=== PATIENT | female | born 1965 | race American Indian/Alaskan Native ===

== ENCOUNTER 2017-01-11 20:09 | Emergency (ER) | payer BC ==
[2017-01-11 21:11] VITALS: BP 147/94
--- NOTE | 2017-01-12 02:31 | Emergency Department Report ---
Upper Extremity - HPI Chief Complaint: Extremity Problem,Nontraumatic Stated Complaint: L THUMB PAIN Time Seen by Provider: 01/12/17 02:26 Upper Extremity: Right Thumb Occurred When: 2 Days Severity: moderate Symptoms: Yes Pain with Movement, Yes Deformity, Yes Swelling, No Limited Range of Movement, No Numbness, No Weakness, No Bruising/Ecchymosis, No Laceration or Abrasion Other History: Paronychia ED Review of Systems ROS: Stated complaint: L THUMB PAIN Other details as noted in HPI Constitutional: denies: chills, fever Musculoskeletal: denies: arthralgia Skin: denies: rash, change in hair/nails ED Past Medical Hx - Past Medical History Previous Medical History?: No - Surgical History Past Surgical History?: Yes Additional Surgical History: TUBAL LIGATION - Social History Smoking Status: Current Every Day Smoker Substance Use Type: None - Medications Home Medications: Home Medications Medication Instructions Recorded Confirmed Last Taken Type Cephalexin [Keflex] 500 mg PO Q8HR #30 cap 01/12/17 Unknown Rx Upper Extremity Exam - Exam General: Vital signs noted. No distress. Alert and acting appropriately. Hand: Yes Digit Tenderness, No Hand Tenderness, No Hand Deformity, No Normal ROM in Digit(s) CMS Exam: Yes Normal Distal Pulses, Yes Normal Capillary Refill, No Broken Skin , No Normal Distal Sensation ED Course Vital Signs 01/11/17 21:07 Temperature 98.5 F Pulse Rate 84 Respiratory 18 Rate Blood Pressure 147/94 O2 Sat by Pulse 97 Oximetry - I & D Finger Type of Procedure: Simple Site: left thumb Blade Size: 11 Progress: Small paronychia decompressed ED Medical Decision Making - Medical Decision Making Small paronychia decompressive 11 blade. Finger is significant swollen will place on oral Keflex. Critical care attestation.: If time is entered above; I have spent that time in minutes in the direct care of this critically ill patient, excluding procedure time. ED Disposition Clinical Impression: Paronychia Disposition: DC-01 TO HOME OR SELFCARE Is pt being admited?: No Condition: Stable Instructions: Paronychia (ED) Prescriptions: Cephalexin [Keflex] 500 mg PO Q8HR #30 cap Referrals: PRIMARY CARE, [Primary Care Provider] - 3-5 Days
== END 2017-01-12 02:40 | disposition home or self-care (01) ==
LOC: ED 20:09
DX: L03.012 Cellulitis of left finger (principal); F17.200 Nicotine dependence, unspecified, uncomplicated
CPT/HCPCS: 99282

== ENCOUNTER 2017-05-22 04:39 | Emergency (ER) | payer BC, OTHER ==
[2017-05-22 04:52] VITALS: BP 122/87
--- NOTE | 2017-05-22 05:35 | Emergency Department Report ---
HPI - General Chief Complaint: Allergic Reaction Time Seen by Provider: 05/22/17 05:05 - HPI HPI: 52 yo female with c/o rash to face and neck that began 4 days ago after trying a new shampoo. She c/o scalp itching and dandruff ,no tongue swelling or airway symptoms. She washed the shampoo out, threw away contaminated clothing but the rash continues. ED Past Medical Hx - Past Medical History Previous Medical History?: Yes Hx Asthma: Yes - Surgical History Past Surgical History?: Yes Additional Surgical History: TUBAL LIGATION - Social History Smoking Status: Current Every Day Smoker Substance Use Type: None - Medications Home Medications: Home Medications Medication Instructions Recorded Confirmed Last Taken Type Cephalexin [Keflex] 500 mg PO Q8HR #30 cap 01/12/17 Unknown Rx ED Review of Systems ROS: Stated complaint: DERMATITIS Other details as noted in HPI Constitutional: denies: chills, fever Eyes: denies: eye pain, eye discharge, vision change ENT: denies: ear pain, throat pain Respiratory: denies: cough, shortness of breath, wheezing Cardiovascular: denies: chest pain, palpitations Endocrine: no symptoms reported Gastrointestinal: denies: abdominal pain, nausea, diarrhea Genitourinary: denies: urgency, dysuria, discharge Musculoskeletal: denies: back pain, joint swelling, arthralgia Skin: rash (face,neck ), pruritus, other. denies: lesions Neurological: denies: headache, weakness, paresthesias Psychiatric: denies: anxiety, depression Hematological/Lymphatic: denies: easy bleeding, easy bruising Physical Exam - Physical Exam Vital Signs: Vital Signs 05/22/17 04:46 Temperature 97.7 F Pulse Rate 100 H Respiratory 18 Rate Blood Pressure 122/87 O2 Sat by Pulse 100 Oximetry ED Course Vital Signs 05/22/17 04:46 Temperature 97.7 F Pulse Rate 100 H Respiratory 18 Rate Blood Pressure 122/87 O2 Sat by Pulse 100 Oximetry Critical care attestation.: If time is entered above; I have spent that time in minutes in the direct care of this critically ill patient, excluding procedure time. ED Disposition Condition: Stable Referrals: PRIMARY CARE, [Primary Care Provider] - 3-5 Days
[2017-05-22] MEDS ORDERED: PEPCID PO ONE (05:39)
[2017-05-22] MEDS ORDERED: BENADRYL PO ONE (05:39)
[2017-05-22] MEDS ORDERED: DELTASONE PO ONE (05:39)
--- NOTE | 2017-05-22 05:42 | Emergency Department Report ---
ED Allergic Reaction HPI - General Chief complaint: Allergic Reaction Stated complaint: DERMATITIS Time Seen by Provider: 05/22/17 05:05 Source: family Mode of arrival: Ambulatory Limitations: No Limitations - History of Present Illness Initial Comments: 52 yo femalw with c/o allergic reaction afor 4 days after trying a new shampoo. She initially had hives on her neck and face and dry patches form in her scalp , now she has no dry patches but continues to have the hives on face and neck. She is not sob, denies any airway symptoms, no hoarseness, no tongue swelling or swallowing difficulties. She threw away any contaminated clothing . - Related Data Previous Rx's Medication Instructions Recorded Last Taken Type Cephalexin [Keflex] 500 mg PO Q8HR #30 cap 01/12/17 Unknown Rx Ranitidine HCl [Acid Control] 150 mg PO BID #14 tablet 05/22/17 Unknown Rx diphenhydrAMINE [Benadryl CAP] 50 mg PO Q6HR #20 capsule 05/22/17 Unknown Rx predniSONE [Deltasone] 60 mg PO QDAY #7 tablet 05/22/17 Unknown Rx Allergies Allergy/AdvReac Type Severity Reaction Status Date / Time morphine Allergy Hives Verified 05/22/17 04:53 Sulfa (Sulfonamide Allergy Rash Verified 01/11/17 21:07 Antibiotics) ED Review of Systems ROS: Stated complaint: DERMATITIS Other details as noted in HPI Constitutional: denies: chills, fever Eyes: denies: eye pain, eye discharge, vision change ENT: denies: ear pain, throat pain Respiratory: denies: cough, shortness of breath, wheezing Cardiovascular: denies: chest pain, palpitations Endocrine: no symptoms reported Gastrointestinal: denies: abdominal pain, nausea, diarrhea Genitourinary: denies: urgency, dysuria, discharge Musculoskeletal: denies: back pain, joint swelling, arthralgia Skin: rash (face,neck ), pruritus, other. denies: lesions Neurological: denies: headache, weakness, paresthesias Psychiatric: denies: anxiety, depression Hematological/Lymphatic: denies: easy bleeding, easy bruising ED Past Medical Hx - Past Medical History Previous Medical History?: Yes Hx Asthma: Yes - Surgical History Past Surgical History?: Yes Additional Surgical History: TUBAL LIGATION - Social History Smoking Status: Current Every Day Smoker Substance Use Type: None - Medications Home Medications: Home Medications Medication Instructions Recorded Confirmed Last Taken Type Cephalexin [Keflex] 500 mg PO Q8HR #30 cap 01/12/17 Unknown Rx Ranitidine HCl [Acid Control] 150 mg PO BID #14 tablet 05/22/17 Unknown Rx diphenhydrAMINE [Benadryl CAP] 50 mg PO Q6HR #20 capsule 05/22/17 Unknown Rx predniSONE [Deltasone] 60 mg PO QDAY #7 tablet 05/22/17 Unknown Rx ED Physical Exam - General Limitations: No Limitations General appearance: alert, in no apparent distress - Head Head exam: Present: atraumatic, normocephalic - Eye Eye exam: Present: normal appearance, EOMI. Absent: scleral icterus, conjunctival injection - ENT ENT exam: Present: mucous membranes moist - Neck Neck exam: Present: normal inspection - Respiratory Respiratory exam: Present: normal lung sounds bilaterally. Absent: respiratory distress, wheezes, rales, rhonchi - Cardiovascular Cardiovascular Exam: Present: regular rate, normal rhythm. Absent: systolic murmur, diastolic murmur, rubs, gallop - GI/Abdominal GI/Abdominal exam: Present: soft, normal bowel sounds - Rectal Rectal exam: Present: deferred - Extremities Exam Extremities exam: Present: normal inspection, full ROM - Back Exam Back exam: Present: normal inspection, full ROM - Neurological Exam Neurological exam: Present: alert, oriented X3 - Psychiatric Psychiatric exam: Present: normal affect, normal mood - Skin Skin exam: Present: warm, dry, intact, normal color, rash (around her mout and back of her neck) ED Course Vital Signs 05/22/17 04:46 Temperature 97.7 F Pulse Rate 100 H Respiratory 18 Rate Blood Pressure 122/87 O2 Sat by Pulse 100 Oximetry ED Medical Decision Making - Medical Decision Making refused iv medication, will treat with oral medications and d/c with prednisone , benadryl and ranitidine scrips Critical care attestation.: If time is entered above; I have spent that time in minutes in the direct care of this critically ill patient, excluding procedure time. ED Disposition Clinical Impression: Allergic reaction Qualifiers: Encounter type: initial encounter Qualified Code(s): T78.40XA - Allergy, unspecified, initial encounter Disposition: TO HOME OR SELFCARE Is pt being admited?: No Does the pt Need Aspirin: No Condition: Stable Instructions: Urticaria (ED) Prescriptions: diphenhydrAMINE [Benadryl CAP] 50 mg PO Q6HR #20 capsule predniSONE [Deltasone] 60 mg PO QDAY #7 tablet Ranitidine HCl [Acid Control] 150 mg PO BID #14 tablet Referrals: PRIMARY CARE, [Primary Care Provider] - 3-5 Days [facility] [Outside] - 3-5 Days Time of Disposition: 05:50
== END 2017-05-22 05:59 | disposition home or self-care (01) ==
LOC: ED 04:39
DX: T78.49XA Other allergy, initial encounter (principal); F17.210 Nicotine dependence, cigarettes, uncomplicated; X58.XXXA Exposure to other specified factors, initial encounter; Z88.6 Allergy status to analgesic agent; Z88.2 Allergy status to sulfonamides
CPT/HCPCS: 99282; J7512

== ENCOUNTER 2017-05-27 11:45 | Emergency (ER) | payer OTHER ==
[2017-05-27 12:07] VITALS: BP 114/77
[2017-05-27] MEDS ORDERED: BENADRYL PO ONE (15:05)
[2017-05-27] MEDS ORDERED: DELTASONE PO ONE (15:05)
[2017-05-27] MEDS ORDERED: PEPCID PO ONE (15:05)
--- NOTE | 2017-05-27 15:17 | Emergency Department Report ---
HPI - General Chief Complaint: Allergic Reaction Time Seen by Provider: 05/27/17 15:03 - HPI HPI: 52-year-old female past medical history asthma presents with complaint of urticaria and slight swelling along the scalp and irritated skin along scalp. Patient denies shortness of breath speaking in full sentences visible trismus or drooling. Does not appear to be in acute distress but does state that her scalp feels itchy. No nausea no vomiting no chest pain no shortness of breath reported by the patient. Patient states that she was treated for an allergic reaction 5 days ago. No recent new foods cosmetic products pets clothing that dressings travel or medicine/medical products. Patient states that last week she did use a new shampoo and did develop some scalp irritation after using the shampoo which she has not refused again. On exam patient does have some urticaria on cheeks and some scalp irritation. Denies any diffuse hives or rash anywhere else on body. States that rash is slightly itchy. ED Past Medical Hx - Past Medical History Hx Asthma: Yes - Surgical History Additional Surgical History: TUBAL LIGATION - Social History Smoking Status: Current Every Day Smoker Substance Use Type: None - Medications Home Medications: Home Medications Medication Instructions Recorded Confirmed Last Taken Type Cephalexin [Keflex] 500 mg PO Q8HR #30 cap 01/12/17 Unknown Rx Ranitidine HCl [Acid Control] 150 mg PO BID #14 tablet 05/22/17 Unknown Rx diphenhydrAMINE [Benadryl CAP] 50 mg PO Q6HR #20 capsule 05/22/17 Unknown Rx predniSONE [Deltasone] 60 mg PO QDAY #7 tablet 05/22/17 Unknown Rx EPINEPHrine (NF) [Epipen (Nf)] 0.3 mg IM ONCE PRN #1 syringekit 05/27/17 Unknown Rx Famotidine [Pepcid] 20 mg PO BID PRN #30 tablet 05/27/17 Unknown Rx Prednisone [predniSONE 10 mg 10 mg PO .TAPER #1 tab.ds.pk 05/27/17 Unknown Rx (6-Day Pack, 21 Tabs)] diphenhydrAMINE [Benadryl CAP] 25 mg PO Q6HR PRN #30 capsule 05/27/17 Unknown Rx ED Review of Systems ROS: Stated complaint: ALLERGIC RECATION/RASH/SWELLING EYES/NECK Other details as noted in HPI Constitutional: denies: chills, fever Eyes: denies: eye pain, eye discharge, vision change ENT: denies: ear pain, throat pain Respiratory: denies: cough, shortness of breath, wheezing Cardiovascular: denies: chest pain, palpitations Endocrine: no symptoms reported Gastrointestinal: denies: abdominal pain, nausea, diarrhea Genitourinary: denies: urgency, dysuria, discharge Musculoskeletal: denies: back pain, joint swelling, arthralgia Skin: as per HPI, rash, pruritus. denies: lesions Neurological: denies: headache, weakness, paresthesias Psychiatric: denies: anxiety, depression Hematological/Lymphatic: denies: easy bleeding, easy bruising Physical Exam - Physical Exam Vital Signs: Vital Signs 05/27/17 12:04 Temperature 98.4 F Pulse Rate 97 H Respiratory 20 Rate Blood Pressure 114/77 O2 Sat by Pulse 99 Oximetry General: General: Well appearing, well nourished, in no distress. Oriented x 3, normal mood and affect .Ambulating without difficulty. Head: Normocephalic, atraumatic, some swelling around bilateral cheek regions, some scaly dry irritated skin near frontal and posterior scalp and behind the ears. Eyes: EOM intact, PERRA Ears: EACs clear, TMs translucent & mobile, ossicles nl appearance, hearing intact. Mouth: Mucous membranes moist, no mucosal lesions. Pharynx: Mucosa non-inflamed, no tonsillar hypertrophy or exudate Heart: No cardiomegaly or thrills; regular rate and rhythm, no murmur or gallop Lungs: Clear to auscultation bilaterally Abdomen: Bowel sounds normal, no tenderness, organomegaly, masses, or hernia Back: Spine normal without deformity or tenderness, no CVA tenderness Extremities: No amputations or deformities, cyanosis, edema or varicosities, peripheral pulses intact Musculoskeletal: Normal gait and station. No misalignment, asymmetry, crepitation, defects, tenderness, masses, effusions, decreased range of motion, instability, atrophy or abnormal strength or tone in the head, neck, spine, ribs , pelvis or extremities. Neurologic: CN 2-12 normal. Sensation to pain, touch, and proprioception normal. DTRs normal in upper and lower extremities. No pathologic reflexes. ED Course Vital Signs 05/27/17 12:04 Temperature 98.4 F Pulse Rate 97 H Respiratory 20 Rate Blood Pressure 114/77 O2 Sat by Pulse 99 Oximetry ED Medical Decision Making - Medical Decision Making A/P: Contact dermatitis 1-Benadryl when necessary, Pepcid when necessary, prednisone taper 2-EpiPen when necessary for emergencies and angioedema only 3-I gave patient information for [place] [facility] and advised her to follow-up to have allergy testing. Patient has no respiratory distress, no lip swelling no tongue swelling and no overt signs of angioedema on clinical exam 4- follow-up with primary care Critical care attestation.: If time is entered above; I have spent that time in minutes in the direct care of this critically ill patient, excluding procedure time. ED Disposition Clinical Impression: Contact dermatitis and eczema Allergic reaction Qualifiers: Encounter type: initial encounter Qualified Code(s): T78.40XA - Allergy, unspecified, initial encounter Disposition: TO HOME OR SELFCARE Is pt being admited?: No Does the pt Need Aspirin: No Condition: Stable Instructions: Contact Dermatitis (ED), Urticaria (ED), Eczema (ED) Additional Instructions: [email or web address] Prescriptions: diphenhydrAMINE [Benadryl CAP] 25 mg PO Q6HR PRN #30 capsule PRN Reason: Allergic Reaction EPINEPHrine (NF) [Epipen (Nf)] 0.3 mg IM ONCE PRN #1 syringekit PRN Reason: Angioedema Famotidine [Pepcid] 20 mg PO BID PRN #30 tablet PRN Reason: Allergic Reaction Prednisone [predniSONE 10 mg (6-Day Pack, 21 Tabs)] 10 mg PO .TAPER #1 tab.ds.pk Referrals: HODAN WAHL MD [Primary Care Provider] - 3-5 Days Forms: Accompanied Note, Work/School Release Form(ED) Time of Disposition: 15:25
== END 2017-05-27 15:48 | disposition home or self-care (01) ==
LOC: ED 11:45
DX: L23.9 Allergic contact dermatitis, unspecified cause (principal); J45.909 Unspecified asthma, uncomplicated; F17.200 Nicotine dependence, unspecified, uncomplicated
CPT/HCPCS: 99282; J7512

== ENCOUNTER 2019-08-26 10:33 | Emergency (ER) | payer OTHER ==
--- NOTE | 2019-08-26 11:22 | Event Note ---
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 This initial assessment/diagnostic orders/clinical plan/treatment(s) is/are subject to change based on patients health status, clinical progression and re- assessment by fellow clinical providers in the ED. Further treatment and workup at subsequent clinical providers discretion. Patient/guardian urged not to elope from the ED as their condition may be serious if not clinically assessed and managed. Initial orders include: needs treatment in [facility]
[2019-08-26 11:24] VITALS: BP 149/89
[2019-08-26] MEDS ORDERED: IBUPROFEN 800 MG TAB PO ONE (11:31)
--- NOTE | 2019-08-26 11:35 | Emergency Department Report ---
ED ENT HPI - General Chief complaint: Dental/Oral Stated complaint: ABSCESS ON GUM Time Seen by Provider: 08/26/19 11:26 Source: patient Mode of arrival: Ambulatory Limitations: No Limitations - History of Present Illness Initial comments: This is a 54-year-old female nontoxic, well nourished in appearance, no acute signs of distress presents to the ED with c/o of left upper toothache 3 days. Patient denies following up with a dentist. Patient describes toothache as aching level of 8 out of 10. Patient denies any facial swelling but does has some gingival swelling. Patient denies any numbness, tingling, fever, chills, headache, stiff neck, abdominal pain, chest pain, shortness of breath. Patient stated allergies to morphine and sulfa with no significant past medical history. MD complaint: tooth pain -: days(s) Location: tooth # 1 - Gingival abscess present Severity: mild Severity scale (0 -10): 8 Quality: aching Consistency: constant Improves with: none Worsens with: none Associated Symptoms: gum swelling, toothache. denies: fever, cough, pain with swallowing, sore throat, tinnitus, hearing loss, discharge from ear, rhinorrhea - Related Data Previous Rx's Medication Instructions Recorded Last Taken Type cephALEXin [Keflex] 500 mg PO Q8HR #30 cap 01/12/17 Unknown Rx diphenhydrAMINE [Benadryl CAP] 50 mg PO Q6HR #20 capsule 05/22/17 Unknown Rx predniSONE [Deltasone] 60 mg PO QDAY #7 tablet 05/22/17 Unknown Rx raNITIdine HCl [Acid Control] 150 mg PO BID #14 tablet 05/22/17 Unknown Rx EPINEPHrine (NF) [Epipen (Nf)] 0.3 mg IM ONCE PRN #1 syringekit 05/27/17 Unknown Rx Famotidine [Pepcid] 20 mg PO BID PRN #30 tablet 05/27/17 Unknown Rx Prednisone [predniSONE 10 mg 10 mg PO .TAPER #1 tab.ds.pk 05/27/17 Unknown Rx (6-Day Pack, 21 Tabs)] diphenhydrAMINE [Benadryl CAP] 25 mg PO Q6HR PRN #30 capsule 05/27/17 Unknown Rx Acetaminophen/Codeine [Tylenol 1 tab PO Q6H PRN #12 tab 08/26/19 Unknown Rx /Codeine # 3 tab] Chlorhexidine Mouthwash [Peridex] 15 ml MM BID #1 bottle 08/26/19 Unknown Rx Clindamycin [Clindamycin CAP] 300 mg PO Q8H #21 cap 08/26/19 Unknown Rx Allergies Allergy/AdvReac Type Severity Reaction Status Date / Time morphine Allergy Hives Verified 05/27/17 12:04 Sulfa (Sulfonamide Allergy Rash Verified 05/27/17 12:04 Antibiotics) ED Dental HPI - General Chief complaint: Dental/Oral Stated complaint: ABSCESS ON GUM Time Seen by Provider: 08/26/19 11:26 Source: patient Mode of arrival: Ambulatory Limitations: No Limitations - Related Data Previous Rx's Medication Instructions Recorded Last Taken Type cephALEXin [Keflex] 500 mg PO Q8HR #30 cap 01/12/17 Unknown Rx diphenhydrAMINE [Benadryl CAP] 50 mg PO Q6HR #20 capsule 05/22/17 Unknown Rx predniSONE [Deltasone] 60 mg PO QDAY #7 tablet 05/22/17 Unknown Rx raNITIdine HCl [Acid Control] 150 mg PO BID #14 tablet 05/22/17 Unknown Rx EPINEPHrine (NF) [Epipen (Nf)] 0.3 mg IM ONCE PRN #1 syringekit 05/27/17 Unknown Rx Famotidine [Pepcid] 20 mg PO BID PRN #30 tablet 05/27/17 Unknown Rx Prednisone [predniSONE 10 mg 10 mg PO .TAPER #1 tab.ds.pk 05/27/17 Unknown Rx (6-Day Pack, 21 Tabs)] diphenhydrAMINE [Benadryl CAP] 25 mg PO Q6HR PRN #30 capsule 05/27/17 Unknown Rx Acetaminophen/Codeine [Tylenol 1 tab PO Q6H PRN #12 tab 08/26/19 Unknown Rx /Codeine # 3 tab] Chlorhexidine Mouthwash [Peridex] 15 ml MM BID #1 bottle 08/26/19 Unknown Rx Clindamycin [Clindamycin CAP] 300 mg PO Q8H #21 cap 08/26/19 Unknown Rx Allergies Allergy/AdvReac Type Severity Reaction Status Date / Time morphine Allergy Hives Verified 05/27/17 12:04 Sulfa (Sulfonamide Allergy Rash Verified 05/27/17 12:04 Antibiotics) ED Review of Systems ROS: Stated complaint: ABSCESS ON GUM Other details as noted in HPI Constitutional: denies: chills, fever Eyes: denies: eye pain, eye discharge, vision change ENT: dental pain. denies: ear pain, throat pain Respiratory: denies: cough, shortness of breath, wheezing Cardiovascular: denies: chest pain, palpitations Endocrine: no symptoms reported Gastrointestinal: denies: abdominal pain, nausea, diarrhea Genitourinary: denies: urgency, dysuria, discharge Musculoskeletal: denies: back pain, joint swelling, arthralgia Skin: denies: rash, lesions Neurological: denies: headache, weakness, paresthesias Psychiatric: denies: anxiety, depression Hematological/Lymphatic: denies: easy bleeding, easy bruising ED Past Medical Hx - Past Medical History Previous Medical History?: Yes Hx Asthma: Yes - Surgical History Past Surgical History?: Yes Additional Surgical History: TUBAL LIGATION - Social History Smoking Status: Current Some Day Smoker Substance Use Type: None - Medications Home Medications: Home Medications Medication Instructions Recorded Confirmed Last Taken Type cephALEXin [Keflex] 500 mg PO Q8HR #30 cap 01/12/17 Unknown Rx diphenhydrAMINE [Benadryl CAP] 50 mg PO Q6HR #20 capsule 05/22/17 Unknown Rx predniSONE [Deltasone] 60 mg PO QDAY #7 tablet 05/22/17 Unknown Rx raNITIdine HCl [Acid Control] 150 mg PO BID #14 tablet 05/22/17 Unknown Rx EPINEPHrine (NF) [Epipen (Nf)] 0.3 mg IM ONCE PRN #1 syringekit 05/27/17 Unknown Rx Famotidine [Pepcid] 20 mg PO BID PRN #30 tablet 05/27/17 Unknown Rx Prednisone [predniSONE 10 mg 10 mg PO .TAPER #1 tab.ds.pk 05/27/17 Unknown Rx (6-Day Pack, 21 Tabs)] diphenhydrAMINE [Benadryl CAP] 25 mg PO Q6HR PRN #30 capsule 05/27/17 Unknown Rx Acetaminophen/Codeine [Tylenol 1 tab PO Q6H PRN #12 tab 02/17/20 Unknown Rx /Codeine # 3 tab] Chlorhexidine Mouthwash [Peridex] 15 ml MM BID #1 bottle 08/26/19 Unknown Rx Clindamycin [Clindamycin CAP] 300 mg PO Q8H #21 cap 08/26/19 Unknown Rx ED Physical Exam - General Limitations: No Limitations General appearance: alert, in no apparent distress - Head Head exam: Present: atraumatic, normocephalic - Expanded ENT Exam Expanded Ear exam: Present: normal external inspection Mouth exam: Present: normal external inspection. Absent: drooling, trismus, muffled voice Teeth exam: Present: dental caries, fractured tooth #, dental tenderness #, gingival enlargement 1 - Other (gingival abscess present) Throat exam: Positive: normal inspection - Neck Neck exam: Present: normal inspection, full ROM. Absent: tenderness, meningismus, lymphadenopathy - Respiratory Respiratory exam: Present: normal lung sounds bilaterally. Absent: respiratory distress, wheezes, rales, rhonchi, stridor, chest wall tenderness, accessory muscle use, decreased breath sounds, prolonged expiratory - Cardiovascular Cardiovascular Exam: Present: regular rate, normal rhythm, normal heart sounds. Absent: bradycardia, tachycardia, irregular rhythm, systolic murmur, diastolic murmur, rubs, gallop - Extremities Exam Extremities exam: Present: normal inspection, full ROM - Back Exam Back exam: Present: normal inspection, full ROM - Neurological Exam Neurological exam: Present: alert, oriented X3, normal gait - Psychiatric Psychiatric exam: Present: normal affect, normal mood - Skin Skin exam: Present: warm, dry, intact, normal color. Absent: rash ED Course Vital Signs 08/26/19 11:19 Temperature 97.8 F Pulse Rate 71 Respiratory 18 Rate Blood Pressure 149/89 O2 Sat by Pulse 99 Oximetry - Reevaluation(s) Reevaluation #1: 08/26/19 11:33 Patient is speaking in full sentences with no signs of distress noted. - I & D Left Face Type of Procedure: Simple Progress: Under sterile field, I used Betadine to cleanse the area. I used a 18-gauge hyper with 6 cc range and aspirated about 1 cc of purulent drainage to the gingival area. I then used sterile 0.9% normal saline flush to flush the wound with total volume of 40 mL used. Bleeding is under control. Patient tolerated the procedure well with no signs of distress noted. ED Medical Decision Making - Medical Decision Making 54-year-old female that presents with dental caries and gingival abscess. Patient is stable and was examined by me. Incision and drainage has been pe rformed patient tolerated well. Patient was instructed to follow-up with a dentist in 3 to 5 days or if symptoms worsen and continue to return to emergency room soon as possible. Patient be treated with Tylenol with codeine as well as clindamycin. At time of discharge, the patient does not seem toxic or ill in appearance. No acute signs of distress noted. Patient agrees to discharge treatment plan of care. No further questions noted by the patient. Critical care attestation.: If time is entered above; I have spent that time in minutes in the direct care of this critically ill patient, excluding procedure time. ED Disposition Clinical Impression: Gingival abscess, Dental caries, Encounter for incision and drainage procedure Disposition: [id number] TO HOME OR SELFCARE Is pt being admited?: No Does the pt Need Aspirin: No Condition: Stable Instructions: Dental Abscess (ED), Acetaminophen/Codeine (By mouth) Additional Instructions: Follow-up with a dentist doctor in 3-5 days or if symptoms worsen and continue return to emergency room as soon as possible. Do not operate any machinery while taking Tylenol with codeine as this may cause drowsiness. Prescriptions: Clindamycin [Clindamycin CAP] 300 mg PO Q8H #21 cap Chlorhexidine Mouthwash [Peridex] 15 ml MM BID #1 bottle Acetaminophen/Codeine [Tylenol /Codeine # 3 tab] 1 tab PO Q6H PRN #12 tab PRN Reason: Pain , Severe (7-10) Referrals: PRIMARY CAREMD [Referring] - 3-5 Days TASHA PATTERSON MD [Staff Physician] - 3-5 Days [facility] [Outside] - 3-5 Days Forms: Work/School Release Form(ED)
== END 2019-08-26 12:01 | disposition home or self-care (01) ==
LOC: ED 10:33
DX: K05.319 Chronic periodontitis, localized, unspecified severity (principal); K02.9 Dental caries, unspecified; J45.909 Unspecified asthma, uncomplicated; F17.200 Nicotine dependence, unspecified, uncomplicated; Z98.51 Tubal ligation status; Z79.899 Other long term (current) drug therapy; Z88.8 Allergy status to other drugs, medicaments and biological substances
CPT/HCPCS: 99282